=== PATIENT | female | born 1965 | race Caucasian/White ===

== ENCOUNTER 2016-06-25 11:54 | Inpatient (IN) ==
[2016-06-25] MEDS ORDERED: methylPREDNISolone 125 MG/2 ML VIAL IVP ONE (11:59)
--- NOTE | 2016-06-25 12:03 | Emergency Department Note ---
Disposition Clinical Impression: Community acquired pneumonia, Acute exacerbation of chronic obstructive airways disease, Tobacco abuse Disposition: Admitted As Inpatient Condition: Fair Time of Disposition: 13:41 SOB HPI - General Chief Complaint: ED Shortness of Breath/Dyspnea Stated Complaint: SAMANTHA Time Seen by Provider: 06/25/16 11:58 Source: patient Mode of arrival: ambulatory Limitations: no limitations Nursing Notes Reviewed: Yes Vital Signs Reviewed: Yes - History of Present Illness 51-year-old female with history of COPD presents with worsening shortness of breath and wheezing over the last 2-3 days despite use of her albuterol home. She states this is associated with a productive cough with green sputum along with chills without fever. She was seen by her physician for the same and had a negative influenza and pertussis screen reportedly. She denies any chest pain , GI or symptoms, rashes or edema. She denies orthopnea. She denies history of DVT or PE. She states this is similar to prior exacerbations of her COPD. Pt Subjective Complaint: shortness of breath - Related Data Allergies Allergy/AdvReac Type Severity Reaction Status Date / Time codeine AdvReac Vomiting Verified 06/25/16 11:58 All systems ED: reviewed and negative except as stated. Past Medical History - Past Medical History Attestation: Yes The following information was validated with the patient. Source: patient Medical history: Reports: COPD Physical Exam - Head Head exam: atraumatic, normocephalic, normal inspection - Eye Eye exam: Present: normal appearance, PERRL, EOMI - ENT ENT exam: normal exam, normal oropharynx, mucous membranes moist - Neck Neck exam: Present: normal inspection, full ROM, trachea midline - Chest Chest inspection: Present: normal inspection, symmetric chest wall rise - Respiratory Patient is tachypneic at approximately 25. She has diffuse wheezing, but is moving air well. Cardiovascular Cardiovascular exam: Present: regular rate, normal rhythm, normal heart sounds - Abdominal Exam Abdominal exam: Present: soft, Non-Tender. Absent: tenderness, distention, guarding, rebound, rigidity - Extremities Exam Extremities exam: Present: normal inspection, full ROM - Expanded Lower Extremity Exam Hip/Pelvis exam: Present: normal inspection, full ROM - Back Exam Back exam: Present: normal inspection, full ROM. Absent: tenderness, CVA tenderness (R), CVA tenderness (L) - Neurological Exam Neurological exam: Present: alert, oriented X3, CN II-XII intact - Psychiatric Psychiatric exam: Present: normal affect, normal mood - Skin Skin exam: Present: warm, dry, intact, normal color Course - Reevaluation(s) Reevaluation #1: Workup shows left lower lobe pneumonia. Mild improvement after DuoNeb. Labs show hypokalemia at 2.9. This is likely due to patient taking multiple albuterol inhalers and nebulizer treatments. It will be rechecked. Patient ambulated in the emergency department and her oxygen dropped to 81% and heart rate increased to 110. Rocephin and azithromycin was ordered for community- acquired pneumonia. Time: 13:39 Reevaluation #2: Accepted by Dr. Ching. Time: 13:46 Vital Signs Temperature 98.9 F 06/25/16 11:59 Pulse Rate 87 06/25/16 11:59 Respiratory Rate 20 06/25/16 11:59 Blood Pressure 134/100 06/25/16 11:59 O2 Sat by Pulse Oximetry 92 L 06/25/16 11:59 Temperature 98.1 F 06/25/16 15:18 Pulse Rate 84 06/25/16 15:18 Respiratory Rate 16 06/25/16 15:18 Blood Pressure 125/55 06/25/16 15:18 O2 Sat by Pulse Oximetry 91 L 06/25/16 15:18 Oxygen Delivery Oxygen Delivery Nasal Cannula Shortness of Breath/Dyspnea - Lab Data Result diagrams: 06/25/16 12:20 06/25/16 12:20 Lab Results 06/25/16 06/25/16 06/25/16 Range/Units 12:20 12:20 12:20 WBC 8.3 (4.3-11.1) K/mcL RBC 4.54 (3.82-4.97) M/mcL Hgb 13.0 (11.5-15.4) g/dL Hct 39.6 (35.3-44.9) % MCV 87.2 (83.0-100.0) fL MCH 28.6 (28.0-33.3) pg MCHC 32.8 (31.6-35.5) g/dL RDW 14.0 (11.5-14.5) % Plt Count 199 (140-400) K/mcL MPV 11.2 (9.4-12.4) fL Immature Gran % 0.6 (0-4) % Seg Neutrophils % 55.1 % Lymphocytes % 36.3 % Monocytes % 7.6 % Eosinophils % 0.0 % Basophils % 0.4 % Neutrophils # 4.6 (1.6-8.9) K/mcL Lymphocytes # 3.0 (0.6-4.6) K/mcL Monocytes # 0.6 (0.0-1.3) K/mcL Eosinophils # 0.0 (0.0-0.6) K/mcL Basophils # 0.0 (0.0-0.2) K/mcL VBG pH (7.32-7.42) pH Units VBG pCO2 (41-51) mmHg VBG pO2 (25-40) mmHg VBG HCO3 (21-27) mEq/L Sodium 142 (136-145) mEq/L Potassium 2.9 L (3.5-4.5) mEq/L Chloride 101 (98-109) mEq/L Carbon Dioxide 32 H (19-29) mEq/L BUN 12 (7-20) mg/dL Creatinine 0.68 (0.57-1.11) mg/dL Est GFR ( Amer) > 60 (> 60) Est GFR (Non-Af Amer) > 60 (> 60) BUN/Creatinine Ratio 18 (6-26) Glucose 95 (70-99) mg/dL Calculated Osmolality 294 (280-300) Lactic Acid 0.8 (0.5-2.2) mmol/L Calcium 8.9 (8.6-10.8) mg/dL Magnesium 1.8 (1.6-2.6) mg/dL Troponin I (0-0.03) ng/mL B-Natriuretic Peptide (0-100) pg/mL 06/25/16 06/25/16 06/25/16 Range/Units 12:20 12:20 12:20 WBC (4.3-11.1) K/mcL RBC (3.82-4.97) M/mcL Hgb (11.5-15.4) g/dL Hct (35.3-44.9) % MCV (83.0-100.0) fL MCH (28.0-33.3) pg MCHC (31.6-35.5) g/dL RDW (11.5-14.5) % Plt Count (140-400) K/mcL MPV (9.4-12.4) fL Immature Gran % (0-4) % Seg Neutrophils % % Lymphocytes % % Monocytes % % Eosinophils % % Basophils % % Neutrophils # (1.6-8.9) K/mcL Lymphocytes # (0.6-4.6) K/mcL Monocytes # (0.0-1.3) K/mcL Eosinophils # (0.0-0.6) K/mcL Basophils # (0.0-0.2) K/mcL VBG pH 7.47 H (7.32-7.42) pH Units VBG pCO2 46 (41-51) mmHg VBG pO2 63 H (25-40) mmHg VBG HCO3 33.5 H (21-27) mEq/L Sodium (136-145) mEq/L Potassium (3.5-4.5) mEq/L Chloride (98-109) mEq/L Carbon Dioxide (19-29) mEq/L BUN (7-20) mg/dL Creatinine (0.57-1.11) mg/dL Est GFR ( Amer) (> 60) Est GFR (Non-Af Amer) (> 60) BUN/Creatinine Ratio (6-26) Glucose (70-99) mg/dL Calculated Osmolality (280-300) Lactic Acid (0.5-2.2) mmol/L Calcium (8.6-10.8) mg/dL Magnesium (1.6-2.6) mg/dL Troponin I 0.00 (0-0.03) ng/mL B-Natriuretic Peptide 72 (0-100) pg/mL - EKG Data EKG attestation: Yes I reviewed and interpreted this EKG. EKG results narrative: Normal sinus rhythm at 84. Normal axis. No ST elevation or depression. No T- wave inversions or flattening. No pathologic Q waves. [place] interval is mildly shortened at 110. No old EKG available. Attestation Statement - Attestation Attestation: I examined this patient and my medical decision-making was reviewed with the MIDDLE[employer] SYSTEMS ARCHITECT/PA/Advanced Practice Nurse/Resident Physician. I agree with the documented findings, disposition and treatment plan as described except to the extent set forth below. 51-year-old female presents he has dyspnea. She has had several days progression of difficulty breathing. She been on steroids for the past 4 days with no improvement. She is using home aerosols with minimal pain. She continues to smoke cigarettes daily. No fevers, chills or rigors. No focal chest pain. No bowel pain or vomiting. No dysuria, hematuria or pyuria. No joint pain or myalgias. Mild increased swelling or lower extremity. The patient appears tachypneic in mild respiratory distress. Oropharynx clear mucous membranes dry. Neck is supple. Chest with diffuse biphasic wheezes in all lung reyes. Breath sounds are diminished in the left base. Extremities warm and dry with symmetric bilateral edema Chest x-ray with left basilar infiltrate consistent with pneumonia. Labs are unremarkable. She had sequential aerosols with minimal improvement and is admitted on IV antibiotics, steroids, some nausea metatarsals.
[2016-06-25] MEDS ORDERED: Ipratropium/Albuterol Neb 3 ML IH ONE (12:09)
[2016-06-25 12:27] LABS: VBG HCO3 33.5 mEq/L (21-27); VBG PH 7.47 pH Units (7.32-7.42)
[2016-06-25 12:29] LABS: Basophils % 0.4 %; Hematocrit 39.6 % (35.3-44.9); Immature Granulocytes % 0.6 % (0-4); Lymphocytes % 36.3 %; Mean Corpuscular HGB Conc 32.8 g/dL (31.6-35.5); Mean Corpuscular Hemoglobin 28.6 pg (28.0-33.3); Mean Corpuscular Volume 87.2 fL (83.0-100.0); Mean Platelet Volume 11.2 fL (9.4-12.4); Monocytes # 0.6 K/mcL (0.0-1.3); Monocytes % 7.6 %; Neutrophils # 4.6 K/mcL (1.6-8.9); Platelet Count 199 K/mcL (140-400); Red Blood Count 4.54 M/mcL (3.82-4.97); Segmented Neutrophils % 55.1 %
[2016-06-25 12:42] LABS: BUN/Creatinine Ratio 18 (6-26); Blood Urea Nitrogen 12 mg/dL (7-20); Calcium 8.9 mg/dL (8.6-10.8); Carbon Dioxide 32 mEq/L (19-29); Chloride 101 mEq/L (98-109); Glucose 95 mg/dL (70-99); Osmolality,Calculated 294 (280-300); Potassium 2.9 mEq/L (3.5-4.5); Sodium 142 mEq/L (136-145); eGFR For African Americans > 60 (> 60); eGFR For Non-African Americans > 60 (> 60)
[2016-06-25] MEDS ORDERED: Azithromycin 500 MG in D5% in Water 250 ML IVPB ONE (13:16)
[2016-06-25 16:27] LABS: Magnesium 1.8 mg/dL (1.6-2.6)
[2016-06-25] MEDS ORDERED: Ipratropium/Albuterol Neb 3 ML IH STA (17:01)
[2016-06-25] MEDS ORDERED: Naloxone 0.4 MG/ML INJ IVP PRN (17:02)
[2016-06-25] MEDS ORDERED: Mag Hydrox/Al Hydrox/Simeth 30 ML UDC PO PRN (17:02)
[2016-06-25] MEDS ORDERED: MOM Conc 10 ML UD.LIQ PO PRN (17:02)
--- NOTE | 2016-06-25 17:12 | Internal Med History&Physical ---
<Jackelyn Machuca - Last Filed: 06/25/16 18:03> Date of Encounter: 06/25/16 Time of Encounter: 16:45 Assessment and Plan (1) Community acquired pneumonia Current visit: Yes Status: Acute Pt has 1 week history of flu-like symptoms and dyspnea. Per pt, her pertussis and flu swabs were negative at her PCP. Today pt states that she could not catch her breath and came to the ED. Chest xray showed L basilar airspace disease, most likely pneumonia without pleural effusion. Pt was diaphoretic and in resp distress, only able to speak in short phrases, sitting up in bed. Pt given stat Duoneb and placed on bipap and appears to be doing better. She was given Zithromax and Rocephin for CAP in the ED. Levaquin 750mg IV daily 02 n/c, titrate to maintain sat about 92% continuous pulse ox Telemetry Duonebs q4h Albuterol neb q2h prn (2) Respiratory failure with hypoxia Current visit: Yes Status: Acute Plan as above Qualifiers: Chronicity: acute Qualified Code(s): J96.01 - Acute respiratory failure with hypoxia (3) Acute exacerbation of chronic obstructive airways disease Current visit: Yes Status: Acute Plan as above Solumedrol 40mg IV bid (4) Tobacco abuse Current visit: Yes Status: Acute Pt quit smoking last week when symptoms started. She was smoking 1 PPD for the last 20 years intermittently. Internal Medicine - H&P: HPI Chief complaint: cough, dyspnea x 1 week Admitted From: Home Plans for Post Hospital Care: Home History of present illness: Ms. Nowak is a 51 year old female with a history of COPD presents today for 1 week history of cough and flu-like symptoms. She was using her albuterol inhaler more frequently than normal and over the last few days has had increasing cough with thick yellow sputum. Pt lives at home with her who has not been ill; she works at an [employer] where there have been several reported cases of the flu. Pt was seen at her PCP office and flu swab and pertussis were both negative. Pt is in respiratory distress and speaks in short phrases. Lungs with inspiratory and expiratory wheezing in all ant and post ryees. She is diaphoretic. Pulse 84 and sat 92% on 3L. I ordered at stat duoneb and requested that the nurse reassess and notify me if she is any better. Past Med Surg Social Fam HX - Past Medical History Medical history: COPD Psychiatric history: depression - Social History Smoking Status: Former smoker Smokeless Tobacco Status: No Alcohol use: none Drug use: none - Family History Grandmother Hx Family Endocrine Disorder: Yes (DM) Internal Medicine - H&P: Meds Allergies codeine Adverse Reaction (Verified 06/25/16 11:58) Vomiting All Systems PM: A 10-system review of systems was performed and is negative for pertinent findings except as documented above in the HPI. - Constitutional Constitutional: fatigue, no chills, no fever(s), no lethargy - Cardiovascular Cardiovascular ROS IM: diaphoresis, dyspnea, dyspnea on exertion, no chest pain , no edema, no palpitations - Respiratory Respiratory: cough, dyspnea, chest congestion, change in phlegm color, pain with cough, no hemoptysis, no dyspnea on exertion - Gastrointestinal Gastrointestinal: cramping, diarrhea, no nausea, no vomiting - Constitutional Vitals: Temp Pulse Resp BP Pulse Ox 98.1 F 84 16 125/55 91 L 06/25/16 15:18 06/25/16 15:18 06/25/16 15:18 06/25/16 15:18 06/25/16 15:18 General appearance: Present: cooperative, A&O X 3, pleasant, severe distress, answers questions appropriately - Eye Eye exam: Present: normal appearance, conjuntiva pink - ENT ENT exam: Present: mucous membranes moist, normal exam - Neck Neck exam general surgery: Present: normal inspection. Absent: lymphadenopathy , tenderness - Respiratory Respiratory exam: Present: prolonged expiratory phase, respiratory distress, wheezes, tachypnea. Absent: chest wall tenderness, decreased breath sounds - Cardiovascular Cardiovascular exam: Present: RRR, +S1, +S2, tachycardia - GI/Abdominal GI/Abdominal exam: Present: normal bowel sounds, soft - Extremities Exam Extremities exam: Present: full ROM, normal capillary refill, normal inspection , warm, radial pulses palpable and symetrical. Absent: calf tenderness, joint swelling, pedal edema, tenderness - Neurological Exam Neurological exam: Present: alert, oriented X3, strengths equal and symetr throughout. Absent: facial droop, speech deficit Internal Med - H&P Results - Labs CBC & Chem 7: 06/25/16 12:20 06/25/16 16:08 - EKG Data EKG shows normal: sinus rhythm - EKG Data Interpretation IM: normal EKG EKG comments: 06/25/16 18:04 NSR with shortened PA interval Rate 84 PA 110ms QRS 89 QT/QTc 361/402 <Nena Flannery - Last Filed: 06/26/16 09:32> Date of Encounter: 06/26/16 Internal Medicine - H&P: HPI History of present illness: Ms. Nowak is a 51 year old female All Systems PM: A 10-system review of systems was performed and is negative for pertinent findings except as documented above in the HPI. - Constitutional Vitals: Temp Pulse Resp BP Pulse Ox 98.3 F 84 16 131/76 93 L 06/26/16 07:59 06/26/16 07:59 06/26/16 08:00 06/26/16 07:59 06/26/16 08:00 Internal Med - H&P Results - Labs CBC & Chem 7: 06/26/16 04:20 06/26/16 04:20 Labs: Short CBC 06/26/16 Range/Units 04:20 WBC 12.7 H D (4.3-11.1) K/mcL Hgb 11.9 (11.5-15.4) g/dL Hct 37.3 (35.3-44.9) % Plt Count 191 (140-400) K/mcL Neutrophils # 10.5 H (1.6-8.9) K/mcL BMP 06/25/16 06/26/16 16:08 04:20 Sodium 142 Potassium 2.7 L 3.1 L Chloride 102 Carbon Dioxide 30 H BUN 13 Creatinine 0.68 Glucose 141 H Calcium 9.2 - Attending Attestation I examined this patient and reviewed laboratory, imaging and all diagnostic data. My medical decision-making was reviewed with JANA Machuca. I agree with the documented findings, disposition and treatment plan as described above. 51- year-old female with past medical history of COPD presented with productive cough and shortness of breath. Chest x-ray showed left basilar airspace opacity. Examination revealed diffuse wheezing and diminished entry. She was admitted with diagnosis of COPD exacerbation triggered by community acquired pneumonia. She was started on IV Levaquin, alb/atrovent nebulizations.
[2016-06-25 17:28] LABS: Magnesium 1.7 mg/dL (1.6-2.6); Potassium 2.7 mEq/L (3.5-4.5)
[2016-06-25] MEDS ORDERED: Albuterol 2.5 MG/3 ML NEBULIZER IH PRN (17:38)
[2016-06-25] MEDS ORDERED: Potassium Chloride 20 MEQ, Lidocaine 1% 2 ML in D5% in Water 250 ML IVPB STA (17:54)
[2016-06-25] MEDS: 0.9 % Sodium Chloride 1,000 ML IVC SCH (18:36)
[2016-06-25] MEDS: MethylPREDNISolone 40 MG/ML VIAL IVP SCH (18:38)
[2016-06-25] MEDS: Budesonide Neb 0.5 MG/2 ML IH SCH ×2 (19:58→20:13)
[2016-06-25] MEDS: Ipratropium/Albuterol Neb 3 ML IH SCH ×2 (20:12→23:43)
[2016-06-26] MEDS: Ipratropium/Albuterol Neb 3 ML IH SCH ×6 (03:43→23:47)
[2016-06-26 05:07] LABS: Basophils % 0.1 %; Hematocrit 37.3 % (35.3-44.9); Hemoglobin 11.9 g/dL (11.5-15.4); Immature Granulocytes % 0.5 % (0-4); Lymphocytes % 12.2 %; Mean Corpuscular HGB Conc 31.9 g/dL (31.6-35.5); Mean Corpuscular Hemoglobin 28.1 pg (28.0-33.3); Mean Corpuscular Volume 88.2 fL (83.0-100.0); Mean Platelet Volume 11.8 fL (9.4-12.4); Monocytes # 0.6 K/mcL (0.0-1.3); Monocytes % 4.7 %; Neutrophils # 10.5 K/mcL (1.6-8.9); Platelet Count 191 K/mcL (140-400); Red Blood Count 4.23 M/mcL (3.82-4.97); Segmented Neutrophils % 82.5 %
[2016-06-26 05:08] LABS: Lymphocytes # 1.6 K/mcL (0.6-4.6)
[2016-06-26] MEDS: MethylPREDNISolone 40 MG/ML VIAL IVP SCH (05:19)
[2016-06-26 05:28] LABS: BUN/Creatinine Ratio 19 (6-26); Blood Urea Nitrogen 13 mg/dL (7-20); Calcium 9.2 mg/dL (8.6-10.8); Carbon Dioxide 30 mEq/L (19-29); Chloride 102 mEq/L (98-109); Glucose 141 mg/dL (70-99); Osmolality,Calculated 296 (280-300); Potassium 3.1 mEq/L (3.5-4.5); Sodium 142 mEq/L (136-145); eGFR For African Americans > 60 (> 60); eGFR For Non-African Americans > 60 (> 60)
[2016-06-26] MEDS: Budesonide Neb 0.5 MG/2 ML IH SCH ×2 (07:59→19:57)
[2016-06-26] MEDS: Levofloxacin 750 MG/150 ML 750 MG/150 ML BAG IVPB SCH (09:58)
--- NOTE | 2016-06-26 16:50 | Internal Med Progress Note ---
Date of Encounter: 06/26/16 Time of Encounter: 09:00 - Assessment and plan (1) Acute exacerbation of chronic obstructive airways disease Current Visit: Yes Status: Acute Assessment and plan: Pt has no wheezing now. Will change steroid to prednisone 40mg po qd. (2) Community acquired pneumonia Current Visit: Yes Status: Acute Assessment and plan: Continue iv Levaquin. CURB 65 score 0, expect change to po abx and discharge soon. (3) Respiratory failure with hypoxia Current Visit: Yes Status: Acute Assessment and plan: Continue supportive treatment and continue treat underlying disease. Qualifiers: Chronicity: acute Qualified Code(s): J96.01 - Acute respiratory failure with hypoxia (4) Tobacco abuse Current Visit: Yes Status: Acute Assessment and plan: Smoking cessation education. (5) DVT prophylaxis Current Visit: Yes Status: Acute Assessment and plan: Heparin sc. - Time Spent With Patient 25 - 35 minutes - Subjective Interval history: Pt is a 51 yoF admitted for SOB and cough. Her past medical hx is significant for COPD. Pt was seen and examined. She is awake, alert, Oriented x 3. In minimal acute distress. Mild cough, nonproductive. Vitals stable. Pt failed outpatient treatment. Will continue IV abx for pneumonia. - Constitutional Vitals: Temp Pulse Resp BP Pulse Ox 98.3 F 88 16 144/75 92 L 06/26/16 15:40 06/26/16 15:40 06/26/16 15:40 06/26/16 15:40 06/26/16 15:40 General appearance: Present: cooperative, A&O X 3, pleasant, severe distress, answers questions appropriately - Head Head exam: Present: atraumatic, normocephalic - Eye Eye exam: Present: PERRL, conjuntiva pink, sclera anicteric Pupils: Present: PERRL - Neck Neck exam general surgery: Present: supple, trachea midline. Absent: lymphadenopathy - Respiratory Respiratory exam: Present: CTAB. Absent: accessory muscle use, rales, rhonchi, wheezes - Cardiovascular Cardiovascular exam: Present: RRR, +S1, +S2. Absent: diastolic murmur, gallop, rubs, systolic murmur - GI/Abdominal GI/Abdominal exam: Present: normal bowel sounds, soft, no peritoneal signs. Absent: distended, tenderness - Extremities Exam Extremities exam: Present: warm, radial pulses palpable and symetrical. Absent : calf tenderness, cyanotic, pedal edema - Neurological Exam Neurological exam: Present: CN II-XII intact, oriented X3, no focal deficits. Absent: pronater drift, facial droop, speech deficit - Skin Skin exam: Present: dry, intact Internal Medicine: Result - Labs CBC & Chem 7: 06/26/16 04:20 06/26/16 04:20 Consult Discharge Plan - Plan Referrals: Kayce Law [Primary Care Provider] -
[2016-06-26] MEDS: 0.9 % Sodium Chloride 1,000 ML IVC SCH (17:52)
[2016-06-26] MEDS: *HR* Heparin 5,000 UNIT/ML VIAL SQ SCH (17:56)
--- NOTE | 2016-06-26 19:43 | Electrocardiograph Report ---
[place] [id number] Test Date: 2016-06-25 Pat Name: Erica Nowak Department: 103 Room: 3B Gender: F Environmental Services Associate: : 1965 Requested By: Daniel Rider Order Number: [id number] Reading MD: Thanh Evans Measurements Intervals Jermyn Rate: 84 P: 60 HI: 110 QRS: 68 QRSD: 89 T: 43 QT: 361 QTc: 402 Interpretive Statements SINUS RHYTHM NONSPECIFIC T-WAVE ABNORMALITY Electronically Signed On 06-26-2016 19:41:00 EST by Thanh Evans
[2016-06-26] MEDS ORDERED: *HR* LORazepam 2 MG/ML VIAL IVP PRN (23:32)
[2016-06-26] MEDS: Ondansetron 4 MG/2 ML VIAL IVP PRN (23:54)
[2016-06-26] MEDS: Acetaminophen 325 MG TABLET PO PRN (23:58)
[2016-06-27] MEDS: Ipratropium/Albuterol Neb 3 ML IH SCH ×6 (04:15→20:11)
[2016-06-27 05:41] LABS: Basophils % 0.1 %; Hematocrit 37.9 % (35.3-44.9); Hemoglobin 12.1 g/dL (11.5-15.4); Immature Granulocytes % 1.4 % (0-4); Lymphocytes # 4.5 K/mcL (0.6-4.6); Lymphocytes % 24.1 %; Mean Corpuscular HGB Conc 31.9 g/dL (31.6-35.5); Mean Corpuscular Hemoglobin 28.2 pg (28.0-33.3); Mean Corpuscular Volume 88.3 fL (83.0-100.0); Mean Platelet Volume 11.7 fL (9.4-12.4); Monocytes # 0.9 K/mcL (0.0-1.3); Monocytes % 4.9 %; Neutrophils # 12.8 K/mcL (1.6-8.9); Platelet Count 229 K/mcL (140-400); Red Blood Count 4.29 M/mcL (3.82-4.97); Red Cell Distribution Width 14.2 % (11.5-14.5); Segmented Neutrophils % 69.5 %
[2016-06-27 05:44] LABS: BUN/Creatinine Ratio 11 (6-26); Blood Urea Nitrogen 8 mg/dL (7-20); Calcium 9.1 mg/dL (8.6-10.8); Carbon Dioxide 31 mEq/L (19-29); Chloride 101 mEq/L (98-109); Glucose 101 mg/dL (70-99); Osmolality,Calculated 292 (280-300); Potassium 3.5 mEq/L (3.5-4.5); Sodium 142 mEq/L (136-145); eGFR For African Americans > 60 (> 60); eGFR For Non-African Americans > 60 (> 60)
[2016-06-27] MEDS: *HR* Heparin 5,000 UNIT/ML VIAL SQ SCH ×2 (06:30→18:29)
[2016-06-27] MEDS: Budesonide Neb 0.5 MG/2 ML IH SCH ×2 (07:37→20:11)
[2016-06-27] MEDS: Levofloxacin 750 MG/150 ML 750 MG/150 ML BAG IVPB SCH (09:44)
[2016-06-27] MEDS: predniSONE 20 MG TABLET PO SCH (09:44)
--- NOTE | 2016-06-27 18:04 | Internal Med Progress Note ---
Date of Encounter: 06/27/16 Time of Encounter: 10:00 - Assessment and plan (1) Acute exacerbation of chronic obstructive airways disease Current Visit: Yes Status: Acute Assessment and plan: Pt has no wheezing now. Will change steroid to prednisone 40mg po qd. (2) Community acquired pneumonia Current Visit: Yes Status: Acute Assessment and plan: Continue iv Levaquin. Worsening symptoms. Closely monitoring (3) Respiratory failure with hypoxia Current Visit: Yes Status: Acute Assessment and plan: Continue supportive treatment and continue treat underlying disease. Qualifiers: Chronicity: acute Qualified Code(s): J96.01 - Acute respiratory failure with hypoxia (4) Tobacco abuse Current Visit: Yes Status: Acute Assessment and plan: Smoking cessation education. (5) DVT prophylaxis Current Visit: Yes Status: Acute Assessment and plan: Heparin sc. - Time Spent With Patient 25 - 35 minutes - Subjective Interval history: Pt is a 51 yoF admitted for SOB and cough. Her past medical hx is significant for COPD. Pt was seen and examined. She is awake, alert, Oriented x 3. Patient has a low fever last night. She is in mild acute distress. Mild cough, nonproductive. Vitals stable. Pt failed outpatient treatment. Will continue IV abx for pneumonia. Worsening symptoms today. - Constitutional Vitals: Temp Pulse Resp BP Pulse Ox 98.1 F 78 14 119/68 92 L 06/27/16 15:24 06/27/16 15:24 06/27/16 16:34 06/27/16 15:24 06/27/16 16:34 General appearance: Present: cooperative, A&O X 3, pleasant, severe distress, answers questions appropriately - Head Head exam: Present: atraumatic, normocephalic - Eye Eye exam: Present: PERRL, conjuntiva pink, sclera anicteric Pupils: Present: PERRL - Neck Neck exam general surgery: Present: supple, trachea midline. Absent: lymphadenopathy - Respiratory Respiratory exam: Present: CTAB, rales (On the right side), rhonchi (Bilaterally ). Absent: accessory muscle use, wheezes - Cardiovascular Cardiovascular exam: Present: RRR, +S1, +S2. Absent: diastolic murmur, gallop, rubs, systolic murmur - GI/Abdominal GI/Abdominal exam: Present: normal bowel sounds, soft, no peritoneal signs. Absent: distended, tenderness - Extremities Exam Extremities exam: Present: warm, radial pulses palpable and symetrical. Absent : calf tenderness, cyanotic, pedal edema - Neurological Exam Neurological exam: Present: CN II-XII intact, oriented X3, no focal deficits. Absent: pronater drift, facial droop, speech deficit - Skin Skin exam: Present: dry, intact Internal Medicine: Result - Labs CBC & Chem 7: 06/27/16 04:45 06/27/16 04:45 Labs: Short CBC 06/27/16 Range/Units 04:45 WBC 18.4 H (4.3-11.1) K/mcL Hgb 12.1 (11.5-15.4) g/dL Hct 37.9 (35.3-44.9) % Plt Count 229 (140-400) K/mcL Neutrophils # 12.8 H (1.6-8.9) K/mcL BMP 06/27/16 04:45 Sodium 142 Potassium 3.5 Chloride 101 Carbon Dioxide 31 H BUN 8 Creatinine 0.70 Glucose 101 H Calcium 9.1 Consult Discharge Plan - Plan Referrals: Kayce Law [Primary Care Provider] -
[2016-06-28] MEDS: Ipratropium/Albuterol Neb 3 ML IH SCH ×7 (01:13→20:25)
[2016-06-28 03:56] LABS: Basophils % 0.1 %; Hematocrit 36.2 % (35.3-44.9); Hemoglobin 11.2 g/dL (11.5-15.4); Immature Granulocytes % 1.3 % (0-4); Lymphocytes # 3.2 K/mcL (0.6-4.6); Mean Corpuscular HGB Conc 30.9 g/dL (31.6-35.5); Mean Corpuscular Hemoglobin 27.4 pg (28.0-33.3); Mean Corpuscular Volume 88.5 fL (83.0-100.0); Monocytes % 6.2 %; Neutrophils # 10.9 K/mcL (1.6-8.9); Platelet Count 219 K/mcL (140-400); Red Blood Count 4.09 M/mcL (3.82-4.97); Segmented Neutrophils % 71.4 %
[2016-06-28 04:10] LABS: BUN/Creatinine Ratio 15 (6-26); Blood Urea Nitrogen 9 mg/dL (7-20); Carbon Dioxide 33 mEq/L (19-29); Chloride 99 mEq/L (98-109); Glucose 93 mg/dL (70-99); Osmolality,Calculated 292 (280-300); Potassium 3.7 mEq/L (3.5-4.5); Sodium 142 mEq/L (136-145); eGFR For African Americans > 60 (> 60); eGFR For Non-African Americans > 60 (> 60)
[2016-06-28] MEDS: Acetylcysteine 10% 2 ML INHSOL IH SCH ×5 (08:08→20:25)
[2016-06-28] MEDS: Budesonide Neb 0.5 MG/2 ML IH SCH ×3 (08:10→20:25)
[2016-06-28] MEDS: predniSONE 20 MG TABLET PO SCH (08:44)
[2016-06-28] MEDS: Acetaminophen 325 MG TABLET PO PRN (08:44)
[2016-06-28] MEDS: Levofloxacin 750 MG/150 ML 750 MG/150 ML BAG IVPB SCH (08:45)
[2016-06-28] MEDS: *HR* Heparin 5,000 UNIT/ML VIAL SQ SCH ×2 (08:45→18:22)
[2016-06-28] MEDS: Ondansetron 4 MG/2 ML VIAL IVP PRN (08:53)
[2016-06-28] MEDS ORDERED: *HR* Promethazine 25 MG/ML VIAL IVP ONE (15:55)
--- NOTE | 2016-06-28 16:13 | Internal Med Progress Note ---
Date of Encounter: 06/28/16 Time of Encounter: 10:00 - Assessment and plan (1) Acute exacerbation of chronic obstructive airways disease Current Visit: Yes Status: Acute Assessment and plan: Pt has no wheezing now. Will change steroid to prednisone 40mg po qd. (2) Community acquired pneumonia Current Visit: Yes Status: Acute Assessment and plan: Continue iv Levaquin. Worsening symptoms. Worsen CXR. Closely monitoring (3) Respiratory failure with hypoxia Current Visit: Yes Status: Acute Assessment and plan: Continue supportive treatment and continue treat underlying disease. Qualifiers: Chronicity: acute Qualified Code(s): J96.01 - Acute respiratory failure with hypoxia (4) Tobacco abuse Current Visit: Yes Status: Acute Assessment and plan: Smoking cessation education. (5) DVT prophylaxis Current Visit: Yes Status: Acute Assessment and plan: Heparin sc. - Time Spent With Patient 25 - 35 minutes - Subjective Interval history: Pt is a 51 yoF admitted for SOB and cough. Her past medical hx is significant for COPD. Pt was seen and examined. She is awake, alert, Oriented x 3. Still cough. SOB slightly improved. She is in mild acute distress. Vitals stable. No fever. Pt failed outpatient treatment. CXR shows worsen pneumonia. Will continue IV abx for pneumonia and supportive treatment. - Constitutional Vitals: Temp Pulse Resp BP Pulse Ox 98.2 F 83 17 124/59 90 L 06/28/16 14:50 06/28/16 14:50 06/28/16 14:50 06/28/16 14:50 06/28/16 14:50 General appearance: Present: cooperative, A&O X 3, pleasant, severe distress, answers questions appropriately - Head Head exam: Present: atraumatic, normocephalic - Eye Eye exam: Present: PERRL, conjuntiva pink, sclera anicteric Pupils: Present: PERRL - Neck Neck exam general surgery: Present: supple, trachea midline. Absent: lymphadenopathy - Respiratory Respiratory exam: Present: CTAB, rales (B/L), rhonchi. Absent: accessory muscle use, wheezes - Cardiovascular Cardiovascular exam: Present: RRR, +S1, +S2. Absent: diastolic murmur, gallop, rubs, systolic murmur - GI/Abdominal GI/Abdominal exam: Present: normal bowel sounds, soft, no peritoneal signs. Absent: distended, tenderness - Extremities Exam Extremities exam: Present: warm, radial pulses palpable and symetrical. Absent : calf tenderness, cyanotic, pedal edema - Neurological Exam Neurological exam: Present: CN II-XII intact, oriented X3, no focal deficits. Absent: pronater drift, facial droop, speech deficit - Skin Skin exam: Present: dry, intact Internal Medicine: Result - Labs CBC & Chem 7: 06/28/16 02:49 06/28/16 02:49 Labs: Short CBC 06/28/16 Range/Units 02:49 WBC 15.3 H (4.3-11.1) K/mcL Hgb 11.2 L (11.5-15.4) g/dL Hct 36.2 (35.3-44.9) % Plt Count 219 (140-400) K/mcL Neutrophils # 10.9 H (1.6-8.9) K/mcL BMP 06/28/16 02:49 Sodium 142 Potassium 3.7 Chloride 99 Carbon Dioxide 33 H BUN 9 Creatinine 0.61 Glucose 93 Calcium 9.0 - Impressions Impressions Chest X-Ray 06/28/16 10:17 IMPRESSION: Worsening bilateral multifocal airspace consolidations suggestive of worsening pneumonia. Recommend follow-up chest radiograph 6-8 weeks post completion of treatment to ensure resolution. If finding persists at that time, CT of the chest would be recommended. D/ / Trent Martines MD / Trent Martines MD Interpreting Provider: Trent Martines MD Consult Discharge Plan - Plan Referrals: Kayce Law [Primary Care Provider] -
[2016-06-29] MEDS: Ipratropium/Albuterol Neb 3 ML IH SCH ×4 (00:17→11:48)
[2016-06-29] MEDS: Acetylcysteine 10% 2 ML INHSOL IH SCH ×4 (00:17→11:48)
[2016-06-29] MEDS: *HR* Heparin 5,000 UNIT/ML VIAL SQ SCH (05:52)
[2016-06-29 07:37] LABS: BUN/Creatinine Ratio 15 (6-26); Blood Urea Nitrogen 10 mg/dL (7-20); Calcium 9.1 mg/dL (8.6-10.8); Carbon Dioxide 34 mEq/L (19-29); Chloride 98 mEq/L (98-109); Glucose 111 mg/dL (70-99); Osmolality,Calculated 294 (280-300); Potassium 2.9 mEq/L (3.5-4.5); Sodium 142 mEq/L (136-145); eGFR For African Americans > 60 (> 60); eGFR For Non-African Americans > 60 (> 60)
[2016-06-29 08:07] LABS: Basophils % 0.2 %; Eosinophils % 0.1 %; Hematocrit 33.9 % (35.3-44.9); Hemoglobin 10.7 g/dL (11.5-15.4); Immature Granulocytes % 0.9 % (0-4); Lymphocytes # 3.9 K/mcL (0.6-4.6); Mean Corpuscular HGB Conc 31.6 g/dL (31.6-35.5); Mean Corpuscular Volume 88.7 fL (83.0-100.0); Mean Platelet Volume 11.5 fL (9.4-12.4); Monocytes # 0.8 K/mcL (0.0-1.3); Monocytes % 5.4 %; Neutrophils # 10.1 K/mcL (1.6-8.9); Platelet Count 238 K/mcL (140-400); Red Blood Count 3.82 M/mcL (3.82-4.97); Red Cell Distribution Width 13.8 % (11.5-14.5); Segmented Neutrophils % 67.4 %
[2016-06-29] MEDS: Budesonide Neb 0.5 MG/2 ML IH SCH (08:23)
[2016-06-29] MEDS: Levofloxacin 750 MG/150 ML 750 MG/150 ML BAG IVPB SCH (08:24)
[2016-06-29] MEDS: Acetaminophen 325 MG TABLET PO PRN (08:25)
[2016-06-29] MEDS: predniSONE 20 MG TABLET PO SCH (08:25)
[2016-06-29 11:11] VITALS: BP 116/61
--- NOTE | 2016-06-29 12:23 | Discharge Summary ---
Date of Encounter: 06/29/16 Time of Encounter: 11:30 - Discharge Diagnosis (1) Acute exacerbation of chronic obstructive airways disease Priority: Primary Status: Acute (2) Community acquired pneumonia Priority: Primary Status: Acute (3) Respiratory failure with hypoxia Priority: Primary Status: Acute Qualifiers: Chronicity: acute Qualified Code(s): J96.01 - Acute respiratory failure with hypoxia (4) Tobacco abuse Priority: Secondary Status: Acute (5) DVT prophylaxis Priority: Secondary Status: Acute - Discharge Medications Prescriptions: Budesonide Neb [Pulmicort Neb] 0.5 mg IH BIDR #1 inhsol GuaiFENesin ER [Mucinex] 1,200 mg PO BID #14 tbbp.12hr Levofloxacin [Levaquin] 750 mg PO DAILY #7 tablet Potassium Chloride 20 meq PO DAILY #7 tab.er.prt PredniSONE 40 mg PO DAILY #14 tablet Home Medications: Albuterol Sulfate [Proair Hfa] 2 puff IH Q4H PRN 06/25/16 [History] Lisinopril [Zestril] 10 mg PO DAILY 06/25/16 [History] Sertraline [Zoloft] 25 mg PO DAILY 06/25/16 [History] Budesonide Neb [Pulmicort Neb] 0.5 mg IH BIDR #1 inhsol 06/29/16 [Rx] GuaiFENesin ER [Mucinex] 1,200 mg PO BID #14 tbbp.12hr 06/29/16 [Rx] Levofloxacin [Levaquin] 750 mg PO DAILY #7 tablet 06/29/16 [Rx] Potassium Chloride 20 meq PO DAILY #7 tab.er.prt 06/29/16 [Rx] PredniSONE 40 mg PO DAILY #14 tablet 06/29/16 [Rx] Allergies/Adverse Reactions: Allergies codeine Adverse Reaction (Verified 06/25/16 11:58) Vomiting Date of admission: 06/26/16 15:55 Primary care physician: Kayce Law Discharging clinician: Kristen Manriquez Anticipated date of discharge: 06/29/16 - Patient Status Disposition: Home, Self-Care Condition: Fair Overall status at discharge: patient is progressing back to baseline - Discharge Instructions Follow Up With: Kayce Law [Primary Care Provider] - Forms: ED Satisfaction Letter - Diet and Activity Activity: increase activity as tolerated, wear oxygen at all times Diet: advance to your usual diet Interval History: Ms. Nowak is a 51 year old female with a history of COPD presents today for 1 week history of cough and flu-like symptoms. She was using her albuterol inhaler more frequently than normal and over the last few days has had increasing cough with thick yellow sputum. Pt lives at home with her who has not been ill; she works at an [employer] where there have been several reported cases of the flu. Pt was seen at her PCP office and flu swab and pertussis were both negative. Pt is in respiratory distress and speaks in short phrases. Lungs with inspiratory and expiratory wheezing in all ant and post reyes. She is diaphoretic. Pulse 84 and sat 92% on 3L. I ordered at stat duoneb and requested that the nurse reassess and notify me if she is any better. Hospital course: Ms. Nowak is a 51 year old female admitted as CAP and COPD exacerbation. She was treated with abx, steroid and bronchodilator. After treatment, her condition has improved. Today she feels much better, less cough and less SOB. Pt eager to go home. Home oxygen qualification done, she need home oxygen, which will prescribed. Pt will discharge home and cont po abx and tapering down steroid. I saw and examined pt today. She has significant improved cough and SOB. No fever, mild SOB, mild cough. Vitals stable. Lung are more clear, no wheezing anymore, only scattered ronchi on the back. Pt is clinically improving, will discharge her home with po abx, tapering down steroid. She will give home oxygen.Pt can ambulate and will stay with family. Pt will f/u with PCP. Smoking cessation education done. Time spent discussing smoking cessation with patient: 3 to 10 minutes - Time Spent with Patient Total time spent providing and/or coordinating discharge services: 40 minutes Greater than 30 minutes - Constitutional Vitals: Temp Pulse Resp BP Pulse Ox 97.4 F L 86 18 116/61 92 L 06/29/16 11:08 06/29/16 11:08 06/29/16 11:49 06/29/16 11:08 06/29/16 11:49 General appearance: Present: cooperative, A&O X 3, pleasant, severe distress, answers questions appropriately - Head Head exam: Present: atraumatic, normocephalic - Eye Eye exam: Present: PERRL, conjuntiva pink, sclera anicteric Pupils: Present: PERRL - Neck Neck exam general surgery: Present: supple, trachea midline. Absent: lymphadenopathy - Respiratory Respiratory exam: Present: CTAB, rhonchi (Few ronchi on B/L lung base). Absent : accessory muscle use, rales, wheezes - Cardiovascular Cardiovascular exam: Present: RRR, +S1, +S2. Absent: diastolic murmur, gallop, rubs, systolic murmur - GI/Abdominal GI/Abdominal exam: Present: normal bowel sounds, soft, no peritoneal signs. Absent: distended, tenderness - Extremities Exam Extremities exam: Present: warm, radial pulses palpable and symetrical. Absent : calf tenderness, cyanotic, pedal edema - Neurological Exam Neurological exam: Present: CN II-XII intact, oriented X3, no focal deficits. Absent: pronater drift, facial droop, speech deficit - Skin Skin exam: Present: dry, intact
== END 2016-06-29 11:45 | disposition home or self-care (01) | DRG 190 ==
LOC: EMEROO 11:54 → 3BNU 11:54 → SUATTDRO 14:20 → 3BNU 14:39
PROVIDERS: ADMIT Internal Medicine; ATTEND Internal Medicine